=== PATIENT | male | born 1995 | race Two or more races ===

== ENCOUNTER 2023-06-13 06:16 | Inpatient (IN) | payer OTHER ==
[~2023-06-13] VITALS: Ht 170.2 cm; Wt 64.7 kg
[2023-06-13 07:15] LABS: Basophils # (auto) 0.1 10 ^3/uL (0-0.2); Eosinophils # (auto) 0 10 ^3/uL (0-0.8); Eosinophils % (auto) 0.1 % (0.0-7.0); Lymphocytes % (auto) 16.4 % (10.0-50.0); Monocytes # (auto) 1.5 10 ^3/uL (0-1.3)
[2023-06-13 07:17] LABS: Basophils % (auto) 0.5 % (0.0-2.0); Hematocrit 54.4 % (41.0-53.0); Hemoglobin 19.1 g/dL (13.5-17.5); Lymphocytes # (auto) 2.9 10 ^3/uL (0.4-5.4); Mean Corpuscular Hemoglobin 31.6 pg (28.0-32.0); Mean Corpuscular Hgb Conc. 35.1 g/dL (32.0-36.0); Monocytes % (auto) 8.6 % (0.0-12.0); Neutrophils # (auto) 13.2 10 ^3/uL (1.6-8.6); Neutrophils % (auto) 74.4 % (37.0-80.0); Nucleated Red Blood Cells % 0.1 %; Red Blood Cells 6.05 10^6/uL (4.5-5.90); Red Cell Distribution Width 13.7 % (11.8-14.3); White Blood Cell 17.7 10^3/uL (4.4-10.8)
[2023-06-13] MEDS ORDERED: SODIUM CHLORIDE 0.9% 1,000 ML IV ONE ×3 (07:30→14:30)
[2023-06-13] MEDS ORDERED: levETIRAcetam 500 MG TAB PO ONE (07:30)
[2023-06-13] MEDS ORDERED: MORPHINE SULFATE INJ 2 MG/ml SYRG IV ONE (07:30)
[2023-06-13] MEDS ORDERED: ONDANSETRON ODT 4 MG TAB PO ONE (07:30)
[2023-06-13] MEDS ORDERED: MORPHINE SULFATE 4 MG/ML SYR/VIAL ONE (07:32)
[2023-06-13] MEDS ORDERED: ONDANSETRON HCL 4 MG/2 ML VIAL ONE (07:32)
[2023-06-13 07:42] LABS: Alanine Aminotransferase 63 U/L (7-40); Albumin 5.7 g/dL (3.2-4.8); Alkaline Phosphatase 90 U/L (46-116); Anion Gap 10 (5-15); Aspartate Aminotransferase 34 U/L (13-40); BUN/Creatinine Ratio 9.6 (10.0-20.0); Blood Urea Nitrogen 12 mg/dL (9-23); Calcium 10.3 mg/dL (8.7-10.4); Carbon Dioxide 31 mmol/L (20-30); Chloride 98 mmol/L (98-107); Glucose 134 mg/dL (74-106); Potassium 3.5 mmol/L (3.5-5.1); Sodium 139 mmol/L (136-145)
[2023-06-13 07:43] LABS: Bilirubin, Total 3.1 mg/dL (0.2-1.0); Total Protein 8.7 g/dL (5.7-8.2)
[2023-06-13 07:44] VITALS: PULSE 88; RESP 18; O2SAT 97
[2023-06-13] MEDS ORDERED: ONDANSETRON HCL 4 MG/2 ML VIAL IV ONE ×2 (07:45→08:00)
[2023-06-13 07:51] LABS: Lipase 37 U/L (12-53)
[2023-06-13] MEDS ORDERED: levETIRAcetam 1000 mg/100ml 100 ML IV ONE ×2 (08:00)
[2023-06-13] MEDS ORDERED: FAMOTIDINE (10MG/ML) 2ML VL IV ONE (10:45)
[2023-06-13] MEDS: LORazepam 2MG/ML-1ML VIAL IV ONE ×2 (10:57→13:36)
[2023-06-13 14:14] LABS: Urine Bacteria NONE SEEN /hpf (None Seen); Urine Blood Negative /uL (Negative); Urine Clarity Clear (Clear); Urine Color Yellow (Yellow); Urine Mucus FEW (None Seen); Urine Protein, UAD 1+ (Negative); Urine WBC <1 /hpf (0 - 3)
[2023-06-13] MEDS ORDERED: ACETAMINOPHEN 325 MG TAB PO PRN (14:30)
[2023-06-13] MEDS ORDERED: PANTOPRAZOLE 40 MG TAB PO ONE (14:30)
[2023-06-13] MEDS ORDERED: metroNIDAZOLE 500MG/100ML 100 ML IV ONE (14:45)
[2023-06-13] MEDS ORDERED: cefTRIAXone 1GM/50ML D5W 50 ML IV ONE (14:45)
[2023-06-13 14:49] LABS: Amphetamine Screen, Urine Neg (NEGATIVE); Barbiturate Scree,Urine Neg (NEGATIVE); Benzodiazephine Screen, Urine Neg (NEGATIVE); Cocaine Screen, Urine Neg (NEGATIVE); Opiate Scree,Urine Neg (NEGATIVE); Phencyclidine Screen, Urine Neg (NEGATIVE)
[2023-06-13 14:50] LABS: Cannabinoid Screen, Urine Pos (NEGATIVE)
[2023-06-13] MEDS: HYDROcodone-ACET 5/325MG TAB PO PRN ×2 (15:07→19:50)
[2023-06-13 17:55] VITALS: BP 130/84; PULSE 80; RESP 18; TEMP 98.4; O2SAT 98
[2023-06-13] MEDS ORDERED: DULO60CA41 PO (18:42)
[2023-06-13] MEDS ORDERED: LORA-655 PO (18:42)
[2023-06-13] MEDS ORDERED: KEP500T PO (18:42)
[2023-06-13 20:00] VITALS: BP 130/84; PULSE 80; RESP 18; TEMP 98.4
[2023-06-13] MEDS ORDERED: HYDROcodone-ACET 5/325MG TAB PO PRN (20:00)
[2023-06-13 22:00] VITALS: BP 130/76; PULSE 65; RESP 18; TEMP 97.6; O2SAT 98
[2023-06-13] MEDS: levETIRAcetam 500 MG TAB PO SCH (22:00)
[2023-06-13] MEDS: metroNIDAZOLE 500MG/100ML 100 ML IV SCH (22:17)
[2023-06-13] MEDS: SODIUM CHLORIDE 0.9% 1,000 ML IV SCH (22:17)
[2023-06-13] MEDS: ONDANSETRON HCL 4 MG/2 ML VIAL IV PRN (22:17)
[2023-06-14 05:00] VITALS: BP 135/84; PULSE 65; RESP 17; TEMP 97.8; O2SAT 100
[2023-06-14] MEDS: ONDANSETRON HCL 4 MG/2 ML VIAL IV PRN ×2 (06:30→12:33)
[2023-06-14] MEDS: metroNIDAZOLE 500MG/100ML 100 ML IV SCH ×2 (06:30→14:00)
[2023-06-14 07:07] LABS: Basophils # (auto) 0.1 10 ^3/uL (0-0.2); Basophils % (auto) 0.6 % (0.0-2.0); Eosinophils # (auto) 0.1 10 ^3/uL (0-0.8); Eosinophils % (auto) 1.4 % (0.0-7.0); Lymphocytes # (auto) 2.7 10 ^3/uL (0.4-5.4); Lymphocytes % (auto) 30.2 % (10.0-50.0); Mean Corpuscular Hemoglobin 30.8 pg (28.0-32.0); Mean Corpuscular Volume 90.6 fL (80.0-100.0); Monocytes # (auto) 0.9 10 ^3/uL (0-1.3); Monocytes % (auto) 10.5 % (0.0-12.0); Neutrophils # (auto) 5.2 10 ^3/uL (1.6-8.6); Neutrophils % (auto) 57.3 % (37.0-80.0); Nucleated Red Blood Cells % 0.1 %; Red Blood Cells 4.86 10^6/uL (4.5-5.90); Red Cell Distribution Width 13.6 % (11.8-14.3)
[2023-06-14 07:14] LABS: Alanine Aminotransferase 37 U/L (7-40); Albumin 4.1 g/dL (3.2-4.8); Alkaline Phosphatase 64 U/L (46-116); Anion Gap 6 (5-15); Aspartate Aminotransferase 16 U/L (13-40); BUN/Creatinine Ratio 8.1 (10.0-20.0); Blood Urea Nitrogen 7 mg/dL (9-23); Calcium 8.6 mg/dL (8.7-10.4); Carbon Dioxide 30 mmol/L (20-30); Chloride 103 mmol/L (98-107); Glucose 81 mg/dL (74-106); Potassium 3.7 mmol/L (3.5-5.1); Sodium 139 mmol/L (136-145)
[2023-06-14 07:15] LABS: Total Protein 6.3 g/dL (5.7-8.2)
[2023-06-14 08:00] VITALS: PULSE 60; RESP 21
[2023-06-14 09:00] VITALS: BP 123/76; PULSE 60; RESP 21; TEMP 98; O2SAT 100
[2023-06-14] MEDS ORDERED: cefTRIAXone 1GM/50ML D5W 50 ML IV SCH (09:00)
[2023-06-14] MEDS: levETIRAcetam 500 MG TAB PO SCH (09:41)
[2023-06-14] MEDS: SODIUM CHLORIDE 0.9% 1,000 ML IV SCH (09:41)
[2023-06-14] MEDS ORDERED: PANTOPRAZOLE 40 MG TAB PO SCH (10:00)
[2023-06-14 12:41] VITALS: BP 130/62; PULSE 66; RESP 21; TEMP 97.6; O2SAT 100
[2023-06-14 13:50] VITALS: BP 130/62; PULSE 66; RESP 17; TEMP 97.6; O2SAT 100
== END 2023-06-14 14:30 | disposition home or self-care (01) | DRG 394 ==
LOC: ER 06:16 → OVERFLOW 14:32 → WEST WING 17:02
PROVIDERS: ADMIT Nurse Practitioner Family; ATTEND Internal Medicine
DX: R11.15 Cyclical vomiting syndrome unrelated to migraine (principal); R65.10 Systemic inflammatory response syndrome (SIRS) of non-infectious origin without acute organ dysfunction; F12.10 Cannabis abuse, uncomplicated; G40.909 Epilepsy, unspecified, not intractable, without status epilepticus; Z79.899 Other long term (current) drug therapy
CPT/HCPCS: 36415; 74176; 80053; 80307; 81001; 82248; 82542; 83690; 83735; 85025; 87040; G0378; J2405; J3490